=== PATIENT | male | born 1985 | race Caucasian/White ===

== ENCOUNTER 2017-08-23 11:30 | Emergency (ER) | payer BC, OTHER ==
--- NOTE | 2017-08-23 12:07 | EDM.PDOC ---
ED HPI GENERAL MEDICAL PROBLEM - General Chief Complaint: Lower Extremity Injury/Pain Stated Complaint: RIGHT ANKLE PAIN WORK RELATED Time Seen by Provider: 08/23/17 11:32 Source of Information: Reports: Patient History Limitations: Reports: No Limitations - History of Present Illness INITIAL COMMENTS - FREE TEXT/NARRATIVE: History of present illness: []Patient injured his right ankle 4 days ago he's sprained the same ankle in the past. Has been ambulatory he denies any other injuries Review of systems: As per history of present illness and below otherwise all systems reviewed and negative. Past medical history: As per history of present illness and as reviewed below otherwise noncontributory. Surgical history: As per history of present illness and as reviewed below otherwise noncontributory. Social history: No reported history of drug or alcohol abuse. Family history: As per history of present illness and as reviewed below otherwise noncontributory. Physical exam: General: Well developed, well nourished in NAD HEENT: Atraumatic, normocephalic, pupils reactive, negative for conjunctival pallor or scleral icterus, mucous membranes moist, throat clear, neck supple, nontender, trachea midline. Lungs: Clear to auscultation, breath sounds equal bilaterally, chest nontender. Heart: S1S2, regular, negative for clicks, rubs, or JVD. Abdomen: Soft, nondistended, nontender. Negative for masses or hepatosplenomegaly. Negative for costovertebral tenderness. Pelvis: Stable nontender. Genitourinary: Deferred. Rectal: Deferred. Extremities: Right ankle with purple yellowish bruising below the lateral malleolus and tenderness and swelling of the malleolus, pulses palpable and sensation intact negative for cords or calf pain. Neurovascular unremarkable. Neuro: Awake, alert, oriented. Cranial nerves II through XII unremarkable. Cerebellum unremarkable. Motor and sensory unremarkable throughout. Exam nonfocal. Diagnostics: [] Therapeutics: [] Impression: []Right ankle sprain Plan: []Aircast ice elevate Motrin follow-up with PMD as normal Definitive disposition and diagnosis as appropriate pending reevaluation and review of above. Right Ankle Pain Score (Numeric/FACES): 8 - Related Data Allergies Allergy/AdvReac Type Severity Reaction Status Date / Time Sulfa (Sulfonamide Allergy Rash Verified 08/23/17 11:48 Antibiotics) Home Meds: Home Meds Sertraline [Zoloft] 50 mg PO DAILY 08/23/17 [History] Past Medical History Psychiatric History: Reports: Depression - Infectious Disease History Infectious Disease History: Reports: Chicken Pox - Past Surgical History HEENT Surgical History: Reports: Myringotomy w Tube(s), Tonsillectomy Social & Family History - Family History Family Medical History: Noncontributory - Tobacco Use Tobacco Use Comment: vaporizer - Caffeine Use Caffeine Use: Reports: Energy Drinks - Recreational Drug Use Recreational Drug Use: No Review of Systems - Review of Systems Review Of Systems: See Below (See history of present illness) ED EXAM, GENERAL - Physical Exam Exam: See Below (See history of present illness) Course - Vital Signs Last Recorded V/S: Last Vital Signs Temp 98.1 F 08/23/17 11:44 Pulse 97 08/23/17 11:44 Resp 18 08/23/17 11:44 BP 131/79 08/23/17 11:44 Pulse Ox 99 08/23/17 11:44 - Orders/Labs/Meds Orders: Active Orders 24 hr Category Date Time Status Splinting [RC] ASDIRECTED Care 08/23/17 12:13 Active Ankle Min 3V Rt [CR] Stat Exams 08/23/17 11:47 Taken Departure - Departure Time of Disposition: 12:23 Disposition: Home, Self-Care 01 Condition: Good Clinical Impression: Right ankle sprain Qualifiers: Encounter type: initial encounter Involved ligament of ankle: unspecified ligament Qualified Code(s): S93.401A - Sprain of unspecified ligament of right ankle, initial encounter - Discharge Information Referrals: Bree Sparrow NP [Primary Care Provider] - Forms: ED Department Discharge Additional Instructions: The following information is given to patients seen in the emergency department who are being discharged to home. This information is to outline your options for follow-up care. We provide all patients seen in our emergency department with a follow-up referral. The need for follow-up, as well as the timing and circumstances, are variable depending upon the specifics of your emergency department visit. If you don't have a primary care physician on staff, we will provide you with a referral. We always advise you to contact your personal physician following an emergency department visit to inform them of the circumstance of the visit and for follow-up with them and/or the need for any referrals to a consulting specialist. The emergency department will also refer you to a specialist when appropriate. This referral assures that you have the opportunity for follow-up care with a specialist. All of these measure are taken in an effort to provide you with optimal care, which includes your follow-up. Under all circumstances we always encourage you to contact your private physician who remains a resource for coordinating your care. When calling for follow-up care, please make the office aware that this follow-up is from your recent emergency room visit. If for any reason you are refused follow-up, please contact the [facility] Emergency Department at and asked to speak to the emergency department charge nurse. tamara Negro elevate splcheri for support follow-up with primary care as needed. [facility] [address] [place] [id number] - My Orders Last 24 Hours: My Active Orders 08/23/17 11:47 Ankle Min 3V Rt [CR] Stat 08/23/17 12:13 Splinting [RC] ASDIRECTED - Assessment/Plan Last 24 Hours: My Active Orders 08/23/17 11:47 Ankle Min 3V Rt [CR] Stat 08/23/17 12:13 Splinting [RC] ASDIRECTED
--- NOTE | 2017-08-25 15:45 | CR ---
EXAM DATE: 08/23/17 PATIENT'S AGE: 32 Patient: JORDON DEGROOT Facility: [place], [place] Site . Site : [id number] Study: XRay Extremity Right [id number]/9/2017 12:04:20 PM Ordering Physician: Mu Mayfield Final Report: INDICATION: Pain and swelling TECHNIQUE: Right ankle 3 views COMPARISON: None FINDINGS: Bones: Alignment is normal. No fractures or bone lesions. Joint spaces: Unremarkable. Soft tissues: There is lateral soft tissue swelling. Dictated by: Rah Ochoa MD @ 08/23/2017 12:41:38 (Electronic Signature) Report Signed by Proxy. GR[facility]QUARE HOSPITALSamreen
== END 2017-08-23 12:41 | disposition home or self-care (01) ==
LOC: MW.ED 11:30
DX: S93.401A Sprain of unspecified ligament of right ankle, initial encounter (principal); Z88.2 Allergy status to sulfonamides; Z79.899 Other long term (current) drug therapy; X58.XXXA Exposure to other specified factors, initial encounter
CPT/HCPCS: 73610-26-RT; 73610-RT; 99283